=== PATIENT | male | born 2000 | race Caucasian/White ===

== ENCOUNTER 2023-08-04 06:21 | Observation (INO) | payer BC ==
[2023-08-02 12:33] VITALS: BMI 25.9
[2023-08-02 12:58] LABS: Hematocrit 41.4 % (38.8-50.0); Hemoglobin 14.8 g/dL (13.5-17.5); Mean Corpuscular HGB CONC 35.7 g/dL (32.0-36.0); Mean Corpuscular Hemoglobin 31.3 pg (27.0-33.0); Mean Corpuscular Volume 87.5 fl (81.2-95.1); Mean Platelet Volume 10.2 fl (7.4-10.4); Platelet Count 210 10x3/uL (150-450); RBC Distribution Width 12.7 % (11.5-14.5); Red Blood Cell (RBC) Count 4.73 10x6/uL (4.32-5.72); White Blood Cell (WBC) Count 4.9 10x3/uL (3.5-10.5)
[2023-08-04] MEDS ORDERED: Lidocaine 1% PF 5 ML VIAL ONE (06:32)
[2023-08-04] MEDS ORDERED: PROPOFOL 20 ML ONE ×2 (06:32→07:42)
[2023-08-04] MEDS ORDERED: Rocuronium Bromide 10 MG/ML (10ML VIAL) ONE ×3 (06:35→12:41)
[2023-08-04] MEDS ORDERED: fentaNYL PF 100 MCG/2 ML SYRINGE ONE ×2 (06:37→08:59)
[2023-08-04] MEDS ORDERED: Chlorhexidine Gluconate 15 ML UDCUP SSP ONE (06:46)
[2023-08-04] MEDS ORDERED: EPINEPHrine 1 MG/ML VIAL ONE ×2 (06:46→11:19)
[2023-08-04] MEDS ORDERED: Hydrocortisone 1% Cream 30 GM TUBE ONE ×2 (06:46→06:59)
[2023-08-04] MEDS ORDERED: Lidocaine 1% (PF) 30 ML VIAL ONE ×2 (06:47→11:19)
[2023-08-04] MEDS ORDERED: PHENYLEPHRINE-NS 100 MCG/ML 10 ML SYRINGE ONE (07:08)
[2023-08-04] MEDS ORDERED: Clindamycin/D5W 900 mg/50 ml Premix Bag ONE ×2 (07:09→14:06)
[2023-08-04] MEDS ORDERED: Dexamethasone 4 mg/ml Vial ONE (07:09)
[2023-08-04] MEDS ORDERED: Oxymetazoline HCl 0.05% (30 ML BOT) ONE ×2 (07:09→07:15)
[2023-08-04] MEDS ORDERED: Lidocaine 4% PF 5 ML AMP ONE (07:12)
[2023-08-04] MEDS ORDERED: Midazolam HCl 2 mg/2 ml Vial ONE (07:36)
[2023-08-04] MEDS ORDERED: MINERAL OIL/WHITE PETROLATUM 3.5 GM TUBE ONE ×2 (07:44→08:02)
[2023-08-04] MEDS ORDERED: Dexmedetomidine 200 MCG/2 ML VIAL ONE (07:49)
[2023-08-04] MEDS ORDERED: HYDROmorphone 0.5 MG/0.5 ML SYRINGE ONE ×2 (12:06→15:36)
[2023-08-04] MEDS ORDERED: Ondansetron PF 4 MG/2 ML Vial ONE (12:33)
[2023-08-04] MEDS ORDERED: Albumin 5% 250 ML ONE (13:08)
[2023-08-04] MEDS ORDERED: SUGAMMADEX SODIUM 200 MG/2 ML VIAL ONE (14:00)
[2023-08-04] MEDS ORDERED: Lidocaine 2% PF 5 ML VIAL ONE (14:17)
[2023-08-04] MEDS ORDERED: Bacitracin Zinc Ointment 30 gm TUBE ONE (14:36)
[2023-08-04] MEDS ORDERED: diphenhydrAMINE 50 MG/ML VIAL IM/IV PRN (15:15)
[2023-08-04] MEDS ORDERED: HYDROmorphone/PF 10 MG in Sodium Chloride 0.9% 99 ML IVPB PRN (15:15)
[2023-08-04] MEDS ORDERED: diphenhydrAMINE 25 MG CAP PO PRN (15:15)
[2023-08-04] MEDS ORDERED: Promethazine HCl 25 MG/ML VIAL IM PRN (15:15)
[2023-08-04] MEDS ORDERED: Naloxone HCl 0.4 mg/ml Vial IV PRN (15:15)
[2023-08-04] MEDS: Sodium Chloride 0.65% Nasal 44 ML BOT EA NARE SCH (17:41)
[2023-08-04] MEDS: Ibuprofen 800 MG TAB PO SCH (17:41)
[2023-08-04] MEDS: D5 0.9% NS w/ 20 mEq KCl 1,000 ML IV SCH (17:45)
[2023-08-04] MEDS: Dexamethasone 4 mg/ml Vial SLOW IVP SCH (17:45)
[2023-08-04] MEDS: Clindamycin/D5W 900 MG in Premix 1 BAG IVPB SCH (17:47)
[2023-08-04] MEDS: Ondansetron PF 4 MG/2 ML Vial IVP PRN (17:49)
[2023-08-04] MEDS: Oxymetazoline HCl 0.05% (30 ML BOT) NS SCH (20:39)
[2023-08-04] MEDS: Chlorhexidine Gluconate 15 ML UDCUP SSP SCH (20:44)
[2023-08-04] MEDS: Acetaminophen 325 MG TAB PO SCH (20:53)
[2023-08-05] MEDS ORDERED: Hydrocodone-Acetamin 15 ML UDCUP PO PRN (15:31)
[2023-08-05] MEDS: Ibuprofen 100 MG/5 ML UDCUP PO SCH (16:15)
[2023-08-06 08:29] VITALS: BP 128/69; TEMP 97.4
== END 2023-08-06 10:50 | disposition home or self-care (01) ==
LOC: SDC 06:21 → MERGE 12:00 → SURG B 16:53
PROVIDERS: ADMIT Dentist Oral and Maxillofacial Surgery; ATTEND Dentist Oral and Maxillofacial Surgery
PROC: 0NSR04Z Reposition Maxilla with Internal Fixation Device, Open Approach (ICD-10-PCS; principal; 2023-08-06)
PROC: 0N8T0ZZ Division of Right Mandible, Open Approach (ICD-10-PCS; 2023-08-06)
PROC: 0N8V0ZZ Division of Left Mandible, Open Approach (ICD-10-PCS; 2023-08-06)
DX: M26.01 Maxillary hyperplasia (principal); M26.29 Other anomalies of dental arch relationship; M26.3 Anomalies of tooth position of fully erupted tooth or teeth; Z90.89 Acquired absence of other organs
CPT/HCPCS: 85027; 86850; 86900; 86901; C1713; J0171; J1100; J1170; J2001; J2250; J2405; J2704; J3480; J3490; P9045